=== PATIENT | female | born 1950 | race Two or more races ===

== ENCOUNTER 2019-10-08 06:12 | Day surgery (SDC) | payer OTHER ==
[2019-09-29 13:40] VITALS: BMI 31.8
[2019-10-08] MEDS ORDERED: LIDOCAINE HCL 2% (20ML MULTI-DOSE VIAL) ONE (07:13)
[2019-10-08] MEDS ORDERED: MIDAZOLAM HCL 2 MG/2 ML SINGLE DOSE VIAL ONE (07:34)
[2019-10-08] MEDS ORDERED: PROPOFOL 20 ML ONE (07:44)
[2019-10-08] MEDS ORDERED: DESFLURANE GAS 240 ML BOTTLE IH ONE (08:00)
[2019-10-08] MEDS ORDERED: BUPIVACAINE HCL 0.25% 125 MG/50 ML VIAL ONE (08:05)
[2019-10-08] MEDS ORDERED: ONDANSETRON 4 MG/2 ML VIAL ONE ×2 (08:20→09:13)
[2019-10-08] MEDS ORDERED: LIDOCAINE HCL/PF 2% SDV 5ML VIAL ONE (08:20)
[2019-10-08] MEDS ORDERED: KETOROLAC TROMETHAMINE 30 MG/1 ML VIAL ONE (08:20)
[2019-10-08] MEDS ORDERED: DEXAMETHASONE SOD PHOSPHATE 4 MG/1 ML VIAL ONE (08:20)
[2019-10-08] MEDS ORDERED: CLINDAMYCIN PHOSPHATE 600 MG/4 ML VIAL ONE (08:20)
[2019-10-08] MEDS ORDERED: BUPIVACAINE HCL/PF 0.25% (2.5MG/ML) 10 ML VIAL IJ ONE (08:50)
[2019-10-08] MEDS ORDERED: oxyCODONE HCL 5 MG TABLET PO PRN (08:56)
[2019-10-08] MEDS ORDERED: ONDANSETRON 4 MG/2 ML VIAL IVPUSH PRN (08:56)
[2019-10-08] MEDS ORDERED: LACTATED RINGERS SOLUTION 1,000 ML IV SCH (09:00)
[2019-10-08 10:02] VITALS: TEMP 97.8
[2019-10-08 10:30] VITALS: BP 121/65; PULSE 75
--- NOTE | 2019-10-08 15:51 | OP ---
DATE OF OPERATION: 10/08/2019 PREOPERATIVE DIAGNOSIS: Left wrist mass. POSTOPERATIVE DIAGNOSIS: Left wrist mass. OPERATIVE PROCEDURE: Left wrist mass excision. SURGEON: Sara Hartmann MD CRM SYSTEM ADMINISTRATOR: CRESENCIO Mcdonough ANESTHESIA: General. COMPLICATIONS: None. ESTIMATED BLOOD LOSS: Minimal. INDICATIONS FOR PROCEDURE: The patient is a 68-year-old female with the above finding, indicated for operative treatment. Risks, benefits, and alternatives were discussed with the patient at length. Proper informed consent was obtained. PROCEDURE: After proper identification of the patient and correct operative site, the patient was brought to the operating room and placed supine on the operating room table. An Surya test was performed and found to be patent on both radial and ulnar sides of the wrist. Left upper extremity was prepped and draped in the usual sterile fashion with a well-padded tourniquet placed over a sterile prep. Esmarch bandage used to exsanguinate left upper extremity. Tourniquet was inflated to 250 mmHg. A curvilinear incision was made over the volar-radial aspect of the wrist and location of the mass. Incision was taken sharply through skin with blunt and sharp dissection through subcutaneous tissues. Mass was found to be a cystic structure and had multiple venous and arterial tributaries crossing it. These were carefully coagulated and removed from the mass. The mass was then traced down to the radiocarpal joint and excised in whole and sent for pathologic evaluation. Wound was irrigated. Tourniquet was released. Hand had excellent perfusion and there was no significant bleeding. Wound was repaired with 4-0 Vicryl and 4-0 nylon suture. Sterile dressings were applied. The patient was reversed from anesthesia and brought to the recovery room in stable condition. She tolerated procedure well. SARA HARTMANN M.D. JESUS ALBERTO/[id number]
--- NOTE | 2019-10-09 17:10 | PATH ---
Surgical Pathology Report Patient Name: KARINA YOST [facility]. Rec. #: [id number] /Age/Gender: 1950 (Age: 68) / F Account: [id number] Location: [facility] Taken: 10/08/2019 Received: 10/08/2019 Reported: 10/09/2019 Physicians: Dario Dixon M.D. Specimen(s) Received LEFT WRIST MASS Clinical History Left wrist mass Final Diagnosis LEFT WRIST MASS, EXCISION: CONSISTENT WITH GANGLION CYST. Electronically Signed Sergei Martinez M.D. Gross Description Received in formalin labeled "left wrist mass," is a 1.8 x 1.2 x 0.4 cm cystic structure. The cyst lumen contains clear mucinous material. The specimen is serially sectioned and entirely submitted in one cassette. /10/08/201910/08/2019
== END 2019-10-08 10:40 | disposition home or self-care (01) ==
LOC: FASU 06:12
PROVIDERS: ATTEND Orthopaedic Surgery Hand Surgery
PROC: 0LB60ZZ Excision of Left Lower Arm and Wrist Tendon, Open Approach (ICD-10-PCS; principal; 2019-10-08 07:56)
DX: M67.432 Ganglion, left wrist (principal)
CPT/HCPCS: 94760

== ENCOUNTER 2019-10-28 15:01 | Emergency (ER) | payer OTHER ==
[2019-10-28 15:18] VITALS: BP 128/93; PULSE 78; TEMP 98; BMI 31.6
--- NOTE | 2019-10-28 15:28 | PDOC ---
Documentation entered by Nneka Stanley SCRIBE, acting as scribe for Jono Mora MD. Jono Mora MD: This documentation has been prepared by the scribe, Nneka Stanley SCRIBE, under my direction and personally reviewed by me in its entirety. I confirm that the documentation accurately reflects all work, treatment, procedures, and medical decision making performed by me. History of Present Illness - General Chief Complaint: Revisit,Wound Recheck Stated Complaint: LEFT ARM WOUND CHECK History Source: Patient Exam Limitations: No Limitations - History of Present Illness Initial Comments: 10/28/19 15:23 The patient is a 69-year-old female with a past medical history significant for recent L wrist mass resection (10/[address] Ferreira, stitches removed on 10/21) who presents to the emergency department with bleeding from her left arm wound. The patient reports she was trying to put on her boot while standing on one foot when she lost balance and fell onto the bed headrest. The patient states she hit the back of her left wrist against the headrest. The wound subsequently started bleeding. Pt denies any other injuries, no headstrike/LOC. Pt had surgery for removal of L wrist mass on 10/08. The patient states she had the stitches removed on 10/21. Since then, pt notes that the wound never fully closed. She denies any bleeding until today but reports swelling underneath the incision. Allergies: Sulfa and penicillin Social history: Denies the use of tobacco or recreational drugs. Reports the social use of alcohol. Surgical history: Appendectomy, R. knee arthroscopy, R. bunionectomy and L. wrist excision. Orthopedic: Dr. Dr. Ferreira. Past History - Past Medical History Allergies/Adverse Reactions: Allergies Allergy/AdvReac Type Severity Reaction Status Date / Time Penicillins Allergy Difficulty Verified 10/28/19 15:06 Breathing Sulfa (Sulfonamide Allergy Difficulty Verified 10/28/19 15:06 Antibiotics) Breathing Home Medications: Ambulatory Orders Aspirin [ASA -] 81 mg PO DAILY 09/29/19 Multivitamin [Multiple Vitamins] 1 each PO DAILY 09/29/19 [place]-3 Acid Ethyl Esters [Lovaza -] 1 gm PO DAILY 09/29/19 Anemia: No Asthma: No Cancer: No Cardiac Disorders: No CVA: No COPD: No CHF: No Dementia: No Diabetes: No GI Disorders: No Disorders: No HTN: No Hypercholesterolemia: Yes Liver Disease: No Seizures: No Thyroid Disease: No - Surgical History Abdominal Surgery: No Appendectomy: Yes Cardiac Surgery: No Cholecystectomy: Yes Lung Surgery: No Neurologic Surgery: No Orthopedic Surgery: Yes (R knee arthroscopy,R bunionectomy) - Psycho Social/Smoking Cessation Hx Smoking History: Never smoked Have you smoked in the past 12 months: No Hx Alcohol Use: Yes (social) Substance Use Type: Alcohol Review of Systems - Review of Systems Able to Perform ROS?: Yes Comments:: 10/28/19 15:24 GENERAL/CONSTITUTIONAL: No fever or chills. No weakness. HEAD, EYES, EARS, NOSE AND THROAT: No change in vision. No ear pain or discharge. No sore throat. CARDIOVASCULAR: No chest pain, no shortness of breath, no loss of consciousness RESPIRATORY: No cough, wheezing, or hemoptysis. GASTROINTESTINAL: No nausea, vomiting, diarrhea or constipation. GENITOURINARY: No dysuria, frequency, or change in urination. MUSCULOSKELETAL: +left wrist wound bleeding. No other joint or muscle swelling or pain. No neck or back pain. SKIN: No rash NEUROLOGIC: No vertigo, no change in strength/sensation. ENDOCRINE: No increased thirst. No abnormal weight change. HEMATOLOGIC/LYMPHATIC: No anemia, easy bleeding, or history of blood clots. ALLERGIC/IMMUNOLOGIC: No hives or skin allergy. *Physical Exam - Physical Exam 10/28/19 15:26 GENERAL: Awake, alert, and fully oriented, in no acute distress. HEAD: No signs of trauma EYES: PERRLA, EOMI, sclera anicteric, conjunctiva clear ENT: Auricles normal inspection, hearing grossly normal, nares patent, oropharynx clear without exudates. Moist mucosa NECK: Nontender, no stepoffs, Normal ROM, supple, no lymphadenopathy, JVD, or masses LUNGS: Breath sounds equal, clear to auscultation bilaterally. No wheezes, and no crackles HEART: Regular rate and rhythm, normal S1 and S2, no murmurs, rubs or gallops ABDOMEN: Soft, nontender, normoactive bowel sounds. No guarding, no rebound. No masses EXTREMITIES: + L wrist with 3cm incision, mild dehiscence, no active bleeding, no erythema or induration, no purulent drainage, Wrist with full range of motion NEUROLOGICAL: Cranial nerves II through XII intact. 5/5 strength and sensation in all extremities, Normal speech, normal gait, normal cerebellar function SKIN: Warm, Dry, normal turgor, no rashes or lesions noted. Medical Decision Making - Medical Decision Making 10/28/19 15:33 69 F with recent L wrist mass removal, now with bleeding from wound after minor trauma to the area. Pt with minor wound dehiscence, no active bleeding. Likely post-surgical hematoma, now evacuated. No signs of post-op infection. - Sterile dressing applied - XR to r/o bony injury XR normal on my read Pt is well appearing, with normal vitals. Clinically stable for DC at this time. I discussed the physical exam findings, ancillary test results and final diagnoses with the patient. I answered all of the patient's questions. The patient was satisfied with the care received and felt comfortable with the discharge plan and treatment plan. The patient agrees to follow up with the primary care physician within 24-72 hours. Discharge - Discharge Information Problems reviewed: Yes Clinical Impression/Diagnosis: Hematoma, postoperative, Wound dehiscence Condition: Good Disposition: HOME - Follow up/Referral Referrals: Dario Dixon MD [Primary Care Provider] - - Patient Discharge Instructions Patient Printed Discharge Instructions: DI for Wound Dehiscence Additional Instructions: Change the dressing twice a day with fresh gauze. Apply petroleum jelly or bacitracin ointment before applying the gauze. Keep the wound clean and dry at all times. If you notice any redness, swelling, abnormal drainage, increased pain, fevers, or any other concerning symptoms, return to the ER immediately. Otherwise, follow up with Dr. Dixon within 48 hours to have your wound re- evaluated. - Post Discharge Activity
== END 2019-10-28 15:49 | disposition home or self-care (01) ==
LOC: FER 15:01
DX: T81.31XA Disruption of external operation (surgical) wound, not elsewhere classified, initial encounter (principal); L76.32 Postprocedural hematoma of skin and subcutaneous tissue following other procedure; W01.190A Fall on same level from slipping, tripping and stumbling with subsequent striking against furniture, initial encounter; Y84.8 Other medical procedures as the cause of abnormal reaction of the patient, or of later complication, without mention of misadventure at the time of the procedure; Y92.9 Unspecified place or not applicable; E78.00 Pure hypercholesterolemia, unspecified; Z88.0 Allergy status to penicillin; Z88.2 Allergy status to sulfonamides; Z79.84 Long term (current) use of oral hypoglycemic drugs
CPT/HCPCS: 73110-TC-LT-FY; 99282-25